=== PATIENT | female | born 1960 | race Caucasian/White ===

== ENCOUNTER 2018-08-04 15:22 | Inpatient (IN) | payer OTHER ==
[~2018-08-04] VITALS: Ht 172.7 cm; Wt 86.2 kg
--- NOTE | 2018-08-04 15:40 | NUR ---
BIBRA 80 FOR GLF, PT C/O RT GROIN PAIN -KO, -SHORTENING. TO ER BED 10, HOOKED TO MONITOR, CHANGED TO GOWN, PROVIDED W WARM BLANKET, AWAITING MD SILVA.
--- NOTE | 2018-08-04 15:50 | NUR ---
ADRI SEGAL MD AT BEDSIDE
[2018-08-04] MEDS ORDERED: KETOROLAC TROMETHAMINE INJ 60 MG/2 ML VIAL IM ONE ×2 (16:00→16:03)
--- NOTE | 2018-08-04 16:10 | NUR ---
ROOM CLEANER AT BEDSIDE
--- NOTE | 2018-08-04 16:30 | NUR ---
CALLED EDGARD HOLLAND FOR CONSULT, AWAITING CALL BACK FROM EVIE OMALLEY
--- NOTE | 2018-08-04 16:50 | NUR ---
REPAGED SHAHRAM CASE FOR ORTHO CONSULT
[2018-08-04] MEDS ORDERED: IV NS 0.9% 1,000 ML BAG IV ONE (18:00)
--- NOTE | 2018-08-04 18:05 | NUR ---
WEI MARTINEZ AT BEDSIDE
[2018-08-04 18:08] LABS: BASOPHILS # (AUTO) 0.1 /CMM (0.0-0.2); BASOPHILS % (AUTO) 0.6 % (0.0-2.0); EOSINOPHILS % (AUTO) 0.4 % (0.0-6.0); HEMATOCRIT 41 % (33-45); HEMOGLOBIN 13.8 g/dL (11.5-14.8); LYMPHOCYTES # (AUTO) 1.8 /CMM (0.8-4.8); LYMPHOCYTES % (AUTO) 12.1 % (20.0-44.0); MEAN CORPUSCULAR HGB CONC 33 g/dl (31.0-36.0); MEAN CORPUSCULAR VOLUME 94 fL (82-100); MONOCYTES # (AUTO) 0.6 /CMM (0.1-1.30); MONOCYTES % (AUTO) 4.3 % (2.0-12.0); NEUTROPHILS # (AUTO) 12.3 /CMM (1.8-8.9); NEUTROPHILS % (AUTO) 82.6 % (43.0-81.0); PLATELET COUNT (AUTO) 219 /CMM (150-450); RED BLOOD CELL COUNT(AUTO) 4.41 MIL/uL (4.0-5.2); WHITE BLOOD COUNT (AUTO) 14.9 K/uL (4.3-11.0)
--- NOTE | 2018-08-04 18:12 | NUR ---
REPORT GIVEN TO DAMIR STERLING OF [facility] UN[facility]
[2018-08-04 18:17] LABS: CALCIUM, SERUM 9.6 mg/dL (8.5-10.1); POTASSIUM 4.9 mmol/L (3.5-5.1)
--- NOTE | 2018-08-04 18:23 | NUR ---
PT WHEELED OUT VIA GURNEY BY EMT AND TRANSFERRED TO [facility]
[2018-08-04 18:40] VITALS: BP 106/64
[2018-08-04] MEDS ORDERED: Z GUARD REMEDY 2 OZ OINT TP PRN (19:00)
[2018-08-04] MEDS ORDERED: HYDROCODONE/APAP 5/325MG 1 EACH TABLET PO PRN (19:00)
[2018-08-04] MEDS ORDERED: ENOXAPARIN SODIUM 40 MG/0.4 ML DISP.SYRIN SQ SCH (19:00)
[2018-08-04] MEDS ORDERED: MAGNESIUM HYDROXIDE 30 ML UDC PO PRN (19:00)
[2018-08-04] MEDS ORDERED: ONDANSETRON HCL/PF 4 MG/2 ML VIAL IVP PRN (19:00)
[2018-08-04] MEDS ORDERED: MAG HYDROX/AL HYDROX/SIMETH 30 ML UDC PO PRN (19:00)
--- NOTE | 2018-08-04 19:10 | NUR ---
rn pm opening note. refusing additional blood work. bedside report recieved from dulce engel. patient resting in bed patient was admitted per report at 1835. admission assessment to be performed. patient in no apparent distrss. reviewed poc questions concerns addressed. sister and friend at the bedside. patient is refusing am labs. states, "i already had that doen an hour ago. i don't want to do it gain so soon." patient informed that the doctor ordered tests and that they generally like to monitor labs while patient is an inpatient. patient states "I still don't want that done.
[2018-08-04] MEDS: IV NS 0.9% 1,000 ML IV PRN (19:54)
[2018-08-04] MEDS: HYDROCODONE/APAP 10/325MG 1 EA TABLET PO PRN (19:54)
[2018-08-04 20:00] VITALS: BP 99/61
--- NOTE | 2018-08-04 21:00 | NUR ---
Admission assessment perfomred. iv fluids initiated.ns at 75 to left ac 20 gauge with no s/s of infiltration. scd pump applied ot left leg. patient wearing knee immobilizer to right knee.
[2018-08-05] MEDS: HYDROCODONE/APAP 10/325MG 1 EA TABLET PO PRN ×3 (00:05→21:53)
--- NOTE | 2018-08-05 00:33 | NUR ---
request for sleep aid. patient requesting sleep aid medication. dr. mendez paged and spoke with on phone. new orders recieved for restoril one time dose of 7.5 mg.
[2018-08-05] MEDS ORDERED: TEMAZEPAM 7.5 MG CAPSULE PO ONE (01:00)
--- NOTE | 2018-08-05 01:05 | NUR ---
offered sleep aid patient offered sleep aid but states, "you know i don't think i will need it." patient informed that if she changes her mind she can have it later but not too early in the am.
[2018-08-05] MEDS: IV NS 0.9% 1,000 ML IV PRN (04:23)
--- NOTE | 2018-08-05 04:50 | NUR ---
labs refused lab pack chemist in to see the patient but informed that patient had refused am labs last night. pit laborer mariela states that another tech will offer to draw the labs later this am to afternoon to attempt to get the blood/see if patient changes mind.
[2018-08-05] MEDS: PANTOPRAZOLE 40 MG TABLET.DR PO SCH (06:55)
[2018-08-05] MEDS: MORPHINE SULFATE INJ 2 MG/ML DISP.SYRIN IV PRN (06:57)
--- NOTE | 2018-08-05 07:00 | NUR ---
RN CLOSING NOTE PATIENT GIVEN MORPHINE REQUESTED FOR PAIN OF 8/10 TO RIGHT GROIN. PATIENT IN BED CALL LIGHT IN REACH. IVF INFUSING TO LEFT AC 20 WITH NO S/S OF COMPLICATIONS. PATIENTS BROTHER SPENT ENTIRE NIGHT AT PATIENTS BEDSIDE. PATIENT IN NO DISTRESS. VERBALIZED UNDERSTANDING TO CALL FOR ASSISTANC.E
[2018-08-05 08:00] VITALS: BP 91/57
--- NOTE | 2018-08-05 08:00 | NUR ---
MS RN NOTES PATIENT IN BED RESTING NO SOB OR ACUTE DISTRESS NOTED. PATIENT ALERT, ORIENTED X3 STATES. PATIENT DENIES ANY PAIN WITHOUT MOVEMENT. PATIENT REFUSED AM LABS STATES SHE GET PARANOID WHEN SEEING NEEDLES AND SHE ABSOLUTELY REFUSED BLOOD DRAW. WEI TRAORE MADE AWARE SHE STATES SHE WILL SPEAK TO PATIENT WHEN ROUNDING.
[2018-08-05] MEDS: DOCUSATE SODIUM 100 MG CAPSULE PO SCH ×2 (08:27→16:27)
[2018-08-05 16:00] VITALS: BP 103/61
[2018-08-05 16:38] LABS: APPEARANCE,URINE TURBID (CLEAR); BILIRUBIN,URINE NEGATIVE (NEGATIVE); BLOOD, URINE NEGATIVE Ery/uL (NEGATIVE); COLOR,URINE YELLOW (YELLOW); KETONES,URINE NEGATIVE (NEGATIVE); LEUKOCYTE ESTERASE ,URINE 1+ (NEGATIVE); NITRITE, URINE NEGATIVE (NEGATIVE); PH,URINE 5.5 (5.0-8.0); PROTEIN,URINE NEGATIVE (NEGATIVE); UGLUCOSE NEGATIVE (NEGATIVE); UROBILINOGEN,URINE 0.2 EU/dL (0.2)
[2018-08-05 16:47] LABS: BACTERIA,URINE Few /HPF (None Seen); RBC,URINE 0-2 /HPF (0-2); SQUAMOUS EPITHELIAL CELL,UR Moderate /HPF (None Seen)
[2018-08-05 16:48] LABS: URINE AMORPHOUS URATE Many /HPF (None Seen)
--- NOTE | 2018-08-05 17:00 | NUR ---
MS RN NOTES PATIENT AGREED FOR BLOOD DRAW 1X ATTEMPT.
[2018-08-05 17:56] LABS: BASOPHILS # (AUTO) 0.1 /CMM (0.0-0.2); BASOPHILS % (AUTO) 0.7 % (0.0-2.0); EOSINOPHILS % (AUTO) 4.8 % (0.0-6.0); HEMATOCRIT 40 % (33-45); HEMOGLOBIN 13.3 g/dL (11.5-14.8); LYMPHOCYTES # (AUTO) 1.7 /CMM (0.8-4.8); LYMPHOCYTES % (AUTO) 21.3 % (20.0-44.0); MEAN CORPUSCULAR HGB CONC 33 g/dl (31.0-36.0); MEAN CORPUSCULAR VOLUME 95 fL (82-100); MONOCYTES # (AUTO) 0.4 /CMM (0.1-1.30); MONOCYTES % (AUTO) 4.8 % (2.0-12.0); NEUTROPHILS # (AUTO) 5.4 /CMM (1.8-8.9); NEUTROPHILS % (AUTO) 68.4 % (43.0-81.0); PLATELET COUNT (AUTO) 183 /CMM (150-450); RED BLOOD CELL COUNT(AUTO) 4.24 MIL/uL (4.0-5.2); WHITE BLOOD COUNT (AUTO) 7.9 K/uL (4.3-11.0)
[2018-08-05 18:12] LABS: CALCIUM, SERUM 8.6 mg/dL (8.5-10.1); CREATININE 1.1 mg/dL (0.6-1.3); MAGNESIUM 1.9 mg/dL (1.8-2.4); PHOSPHORUS 3.9 mg/dL (2.5-4.9); POTASSIUM 3.9 mmol/L (3.5-5.1)
--- NOTE | 2018-08-05 18:23 | NUR ---
MS RN NOTES PATIENT IN BED RESTING NO SOB OR ACUTE DISTRESS NOTED. PATIENT ALERT, ORIENTED X3. PAIN WAS CONTROLLED WITH MEDICATIONS. ALL DUE MEDICATIONS ADMINISTERED. ALL NEEDS MET. ENDORSED CARE TO PM SHIFT.
[2018-08-05 19:09] LABS: THYROID STIMULATING HORMONE 2.608 uIU/mL (0.358-3.74)
--- NOTE | 2018-08-05 19:47 | NUR ---
MS/RN OPENING NOTES RECEIVED PATIENT IN BED, AWAKE ALERT X4, ABLE TO VERBALIZE NEEDS, DISCUSSED CONCERNS REGARDING AMBULATION AND DIFFICULTY STANDING UP, PER PHYSICAL THERAPY WILL SEE HER MARIANO REPORTED BY PATIENT, PATIENT REQUIRE EXTENSIVE ASSISTANCE AND USES BED DOMINIQUE . MOTIVATED FOR SELF CARE. SKIN WARM TO TOUCH, REPORTED PAIN WHEN DOING ACTIVITY. WILL MONITOR. BED LOCKED, CALL LIGHTS WITHIN REACH, WILL MONITOR.
[2018-08-05 20:00] VITALS: BP 98/65
--- NOTE | 2018-08-05 21:54 | NUR ---
NORCO 10-325 MG PO GIVEN PER PATIENT REQUEST FOR SEVERE PAIN IN GROIN WITH GRIMACE, GUARDING WILL MONITOR PAIN RELIEF.
[2018-08-05] MEDS: ACETAMINOPHEN 325 MG TABLET PO PRN (23:28)
--- NOTE | 2018-08-05 23:37 | NUR ---
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
--- NOTE | 2018-08-06 06:26 | NUR ---
MS/RN NOTES PATIENT ABLE TO SLEEP DURING THE NIGHT, RESPIRATIONS EVEN AND UNLABORED, SKIN INTACT AND DRY WITH SELF CARE. BELONGINGS WITHIN REACH. BED LOCKED, CALL LIGHTS WITHIN REACH. WILL ENDORSE TO AM RN FOR TIGIST.
[2018-08-06] MEDS: PANTOPRAZOLE 40 MG TABLET.DR PO SCH (07:30)
[2018-08-06] MEDS: HYDROCODONE/APAP 10/325MG 1 EA TABLET PO PRN ×2 (07:39→19:36)
[2018-08-06] MEDS: ACETAMINOPHEN 325 MG TABLET PO PRN (07:43)
[2018-08-06 08:00] VITALS: BP 108/78
--- NOTE | 2018-08-06 08:26 | NUR ---
RN MS OPENING NOTES Patient received on room air, no sob noted. a/o x4, patient on moderate pain and was given pain meds per request. Left ac #20 infusing well, no obstruction, NS 75 mL per hour. Bed at the lowest setting, call light within reach.
[2018-08-06] MEDS: DOCUSATE SODIUM 100 MG CAPSULE PO SCH ×2 (09:00→17:00)
[2018-08-06] MEDS: MORPHINE SULFATE INJ 2 MG/ML DISP.SYRIN IV PRN ×2 (10:40→16:36)
[2018-08-06] MEDS ORDERED: HYDR-3972 PO (11:30)
[2018-08-06] MEDS ORDERED: SULF1TAB48 PO (11:30)
[2018-08-06 16:00] VITALS: BP 105/64
--- NOTE | 2018-08-06 18:38 | NUR ---
RN MS NOTES Patient remains on room air, no sob noted. Patient remains on Left AC #20, patient refuses IV fluids. Patient is currently awaiting medical transport to be transferred out. Patient has all the paperwork signed, and patient has no questions about discharge. patient has all her belongings with her. Will give report to NOC RN for TIGIST.
--- NOTE | 2018-08-06 19:43 | NUR ---
MS RN OPENING NOTES: RECEIVED PATIENT RESTING COMFORTABLY IN BED, AWAKE ALERT AND ORIENTED X4, TO BE D/C HOME. IV G20 REMOVED,TIP INTACT, NO BLEEDING NOTED. NORCO10/325 MG PO 1 TAB GIVEN FOR 8/10 PAIN ON THE RIGHT GROIN. CAACORDING TO THE PATIENT SHE ALREADY RECEIVED THE D/C PACKET AND PRESCRIPTION, AND NO QUESTION AT THIS TIME. FAMILY MEMBERS AT THE BEDSIDE. AMBULANCE PERSONNELS CAME AND GIVEN REPORTS. PATIENT VOIDED THRU BEDPAN,YELLOWISH CLEAR ,MODERAT AMOUNT URINE.
== END 2018-08-06 19:50 | disposition home health service (06) | DRG 536 ==
LOC: ER 15:22 → MED 18:04
PROVIDERS: ADMIT Registered Nurse; ATTEND Registered Nurse
DX: S32.501A Unspecified fracture of right pubis, initial encounter for closed fracture (principal); N39.0 Urinary tract infection, site not specified; W01.0XXA Fall on same level from slipping, tripping and stumbling without subsequent striking against object, initial encounter; D72.829 Elevated white blood cell count, unspecified; Y93.9 Activity, unspecified; B96.89 Other specified bacterial agents as the cause of diseases classified elsewhere; Y92.039 Unspecified place in apartment as the place of occurrence of the external cause
CPT/HCPCS: 36415; 73502; 80048-TC; 80061-TC; 81000-TC; 83735-TC; 84100-TC; 84443-TC; 85025-TC; 85730-TC; 87081-TC; 87086-TC; 97110-TC; 97116-TC; 97530-TC; G0378; J1885; J2270; J7030

== ENCOUNTER 2022-03-06 13:26 | Emergency (ER) | payer OTHER ==
[~2022-03-06] VITALS: Ht 170.2 cm; Wt 81.6 kg
[~2022-03-06 13:26] MED LIST: HYDR-3972 PO; SULF1TAB48 PO
[2022-03-06 13:59] VITALS: BP 131/64
--- NOTE | 2022-03-06 14:06 | NUR ---
RECEIVED pt 61 yrs female came from s/p trip and fall in [facility] skin abration on lt knee and deformity on rt hand and wrist
[2022-03-06] MEDS ORDERED: IBUPROFEN 600 MG TABLET PO ONE (14:30)
--- NOTE | 2022-03-06 14:30 | NUR ---
SEEN BY DR ALVARADO
--- NOTE | 2022-03-06 14:55 | NUR ---
XRAY DONE ON RT WIST AND LT KNEE AT BED SIDE
[2022-03-06] MEDS ORDERED: IBUPROFEN 600 MG TABLET ONE (15:00)
--- NOTE | 2022-03-06 15:57 | NUR ---
Patient discharged to home in stable condition. Written and verbal after care instructions given. Patient verbalizes understanding of instruction.
== END 2022-03-06 15:57 | disposition home or self-care (01) ==
LOC: ER 13:40
DX: S80.212A Abrasion, left knee, initial encounter (principal); Z88.0 Allergy status to penicillin; Z79.899 Other long term (current) drug therapy; W19.XXXA Unspecified fall, initial encounter; Y93.01 Activity, walking, marching and hiking; Y92.89 Other specified places as the place of occurrence of the external cause; Y99.8 Other external cause status
CPT/HCPCS: 73130-TC; 73564-TC

== ENCOUNTER 2022-03-26 12:14 | Emergency (ER) | payer OTHER ==
[~2022-03-26] VITALS: Ht 170.2 cm; Wt 80.7 kg
[2022-03-26 13:09] VITALS: BP 112/74
--- NOTE | 2022-03-26 13:30 | NUR ---
c/o left arm pain s/p fall 2 weeks ago 08/18 ps
--- NOTE | 2022-03-26 14:30 | NUR ---
emt placed a splint
--- NOTE | 2022-03-26 15:17 | NUR ---
Patient discharged to home in stable condition. Written and verbal after care instructions given. Patient verbalizes understanding of instruction.
== END 2022-03-26 15:17 | disposition home or self-care (01) ==
LOC: ER 12:16
DX: S52.511A Displaced fracture of right radial styloid process, initial encounter for closed fracture (principal); Z88.0 Allergy status to penicillin; Z79.899 Other long term (current) drug therapy; W19.XXXA Unspecified fall, initial encounter; Y93.89 Activity, other specified; Y92.89 Other specified places as the place of occurrence of the external cause; Y99.8 Other external cause status
CPT/HCPCS: 73110

== ENCOUNTER 2023-07-06 11:28 | Emergency (ER) | payer OTHER ==
[~2023-07-06] VITALS: Ht 167.6 cm; Wt 65.8 kg
[2023-07-06] MEDS ORDERED: KETOROLAC TROMETHAMINE INJ 30 MG/ML VIAL ONE (13:37)
[2023-07-06] MEDS ORDERED: CYCLOBENZAPRINE 10 MG TABLET ONE (13:37)
[2023-07-06] MEDS: KETOROLAC TROMETHAMINE INJ 30 MG/ML VIAL IM ONE (13:43)
[2023-07-06] MEDS ORDERED: CYCL5TAB PO (13:43)
[2023-07-06] MEDS: CYCLOBENZAPRINE 10 MG TABLET PO ONE (13:44)
[2023-07-06 13:56] VITALS: BP 112/66; TEMP 98.4; O2SAT 91
== END 2023-07-06 13:57 | disposition home or self-care (01) ==
LOC: ER 11:31
DX: M25.511 Pain in right shoulder (principal); Z79.899 Other long term (current) drug therapy; Z88.0 Allergy status to penicillin
CPT/HCPCS: 99283; 96372; J1885